=== PATIENT | female | born 1950 | race Caucasian/White ===

== ENCOUNTER 2021-12-04 09:25 | Emergency (ER) | payer OTHER, MEDICAID ==
[~2021-12-04] VITALS: Ht 152.4 cm; Wt 59.0 kg
[2021-12-04 11:15] VITALS: BP_SYST 124
[2021-12-04] MEDS ORDERED: IBUP-1969 PO (13:10)
[2021-12-04 18:55] VITALS: BP_SYST 124
== END 2021-12-04 11:15 | disposition home or self-care (01) ==
LOC: SED 09:25
DX: M17.11 Unilateral primary osteoarthritis, right knee (principal); M79.661 Pain in right lower leg
CPT/HCPCS: 73560-TC; 99283